=== PATIENT | male | born 1985 | race Caucasian/White ===

== ENCOUNTER 2022-09-05 19:42 | Emergency (ER) | payer MEDICAID, SELFPAY ==
[2022-09-05 19:43] VITALS: BP 157/79; PULSE 94; RESP 18; TEMP 36.7; O2SAT 98; BMI 30.9
== END 2022-09-05 20:00 | disposition left against medical advice (07) ==
DX: K08.89 Other specified disorders of teeth and supporting structures (principal)
CPT/HCPCS: 99281